=== PATIENT | female | born 1980 | race Caucasian/White ===

== ENCOUNTER 2016-09-24 19:35 | Emergency (ER) | payer MEDICAID, OTHER ==
[~2016-09-24] VITALS: Ht 157.5 cm; Wt 110.0 kg
[2016-09-24 19:37] VITALS: Ht 157.5 cm; Wt 110.0 kg
[2016-09-24 20:47] LABS: ADD SCAN DIFF NO
[2016-09-24 20:50] LABS: BASOPHILS % 0.5 % (0.0-2.0); EOSINOPHILS # 0.1 10^3/ul (0.0-0.5); EOSINOPHILS % 1.6 % (0.0-7.0); HEMATOCRIT 37.6 % (37.0-47.0); HEMOGLOBIN 11.6 g/dl (12.0-16.0); LYMPHOCYTES % 26.9 % (15.0-51.0); MEAN CORPUSCULAR HEMOGLOBIN 26.4 pg (29.0-33.0); MEAN CORPUSCULAR HGB CONC 30.9 g/dl (32.0-37.0); MEAN CORPUSCULAR VOLUME 85.6 fl (82.0-101.0); MEAN PLATELET VOLUME 10.6 fl (7.4-10.4); MONOCYTE # 0.6 10^3/ul (0.3-0.9); MONOCYTES % 7.5 % (0.0-11.0); NEUTROPHIL # 4.7 10^3/ul (1.6-7.5); NEUTROPHILS % 63.2 % (39.0-77.0); PLATELET COUNT 401 10^3/UL (140-415); RED BLOOD COUNT 4.39 10^6/ul (4.20-5.40); RED CELL DISTRIBUTION WIDTH 15.4 % (11.5-14.5); WHITE BLOOD COUNT 7.4 10^3/ul (4.8-10.8)
[2016-09-24 21:07] LABS: ALBUMIN 4.8 g/dl (3.3-4.9)
[2016-09-24 21:08] LABS: POTASSIUM 3.9 mmol/L (3.5-5.1)
[2016-09-24 21:10] LABS: ALBUMIN/GLOBULIN RATIO 1.65; BILIRUBIN,INDIRECT 0.2 mg/dl (0-1.1); BILIRUBIN,TOTAL 0.2 mg/dl (0.2-1.3); CREATININE 0.59 mg/dl (0.44-1.00); TOTAL PROTEIN 7.7 g/dl (6.1-8.1)
[2016-09-24 21:11] LABS: CALCIUM 9.2 mg/dl (8.4-10.2)
--- NOTE | 2016-09-24 21:11 | RADRPT ---
PROCEDURE: US Pelvis. CLINICAL INDICATION: Abdominal Pain TECHNIQUE: Multiple sonographic images of the pelvis were obtained utilizing a transabdominal and endovaginal technique. The images were reviewed on a PACS workstation. COMPARISON: None. FINDINGS: The uterus is visualized and measures 7.8 cm sagittal by 3.7 cm AP by 5.4 cm transverse on transabdo amanda imaging. There are small Nabothian cyst on the cervix. The endometrial echo complex is normal and measures 0.57 cm on endovaginal imaging. There is no evidence for free fluid. The right ovary is not visualized. The left ovary has a normal echotexture and measures 3 x 2.3 x 2.6 cm. No adnexal masses are noted. IMPRESSION: 1. There are small Nabothian cysts on the cervix. 2. Otherwise unremarkable pelvic sonogram. Physician Trisha Date Time Electronically viewed and signed by Physician Trisha on 09/24/2016 21:11 /
[2016-09-24 21:26] LABS: URINE BLOOD (Dip) POC 3+ (NEGATIVE)
[2016-09-24] MEDS ORDERED: IBUP-1542 PO (22:22)
[2016-09-24 22:29] VITALS: BP 149/76; PULSE 81; RESP 17; TEMP 98.7
--- NOTE | 2016-09-24 22:47 | ERD ---
ER Documentation Chief Complaint Date/Time DATE: 09/24/16 TIME: 22:39 Chief Complaint LLQ AP X 1 WEEK DENIES N/V/D HPI This is a 36-year-old female presenting to the emergency department complaining of heavy vaginal bleeding since August 11 for the past 2 months. Patient also complains of left-sided pelvic pain, rating it moderate in severity. Patient states that she went to see her primary care physician last week in regards to this and she was given medroxyprogesterone, she states that has not helped her. Patient states that she uses 8-10 tampons or pads per day. Patient denies any chest pain, shortness of breath, dizziness. She has not taken any medications for this. ROS All systems reviewed and are negative except as per history of present illness. Medications Home Meds Active Scripts Ibuprofen* (Ibuprofen*) 600 Mg Tablet, 600 MG PO Q6H Y for PAIN AND OR ELEVATED TEMP, #30 TAB Prov:CANDICE PUCKETT PA-C 09/24/16 Allergies Allergies: Coded Allergies: No Known Drug Allergy (Verified Allergy, Unknown, 09/24/16) PMhx/Soc History of Surgery: No (DENIES MEDICAL AND SURGICAL HX.) Anesthesia Reaction: No Hx Neurological Disorder: No Hx Respiratory Disorders: No Hx Cardiac Disorders: No Hx Psychiatric Problems: No Hx Miscellaneous Medical Probl: No Hx Alcohol Use: No Hx Substance Use: No Hx Tobacco Use: No Physical Exam Vitals Vital Signs Date Time Temp Pulse Resp B/P Pulse Ox O2 Delivery O2 Flow Rate FiO2 09/24/16 22:29 98.7 81 17 149/76 100 Room Air 09/24/16 19:37 98.3 101 18 151/78 98 Physical Exam General: well-developed/well-nourished, in no apparent distress, non-toxic appearing HENT: NC/AT, bilateral tympanic membrane is normal with good cone of light, nares patent, oropharynx clear without exudates Eyes: Conjunctiva normal, PERRLA, EOMI Neck: Supple, no lymphadenopathy Pulm: CTA bilaterally, no rales, rhonchi, or wheezing heard CV: Normal S1S2 GI: Soft, non-distended, normal bowel sounds, tender to palpation in pelvic region, negative rosvings, negative smalls's Back: No midline tenderness, no masses, No CVAT Ext: No clubbing, cyanosis, or edema Neuro: Alert and Orientated, gait normal Skin: Intact, normal turgor Psych: Normal mood and mentation Result Diagram: 09/24/16202909/24/162029 Results 24 hrs Laboratory Tests Test 09/24/16 20:30 09/24/16 21:29 White Blood Count 7.410^3/ul Red Blood Count 4.3910^6/ul Hemoglobin 11.6g/dl Hematocrit 37.6% Mean Corpuscular Volume 85.6fl Mean Corpuscular Hemoglobin 26.4pg Mean Corpuscular Hemoglobin Concent 30.9g/dl Red Cell Distribution Width 15.4% Platelet Count 54950^3/UL Mean Platelet Volume 10.6fl Neutrophils % 63.2% Lymphocytes % 26.9% Monocytes % 7.5% Eosinophils % 1.6% Basophils % 0.5% Nucleated Red Blood Cells % 0.0/100WBC Neutrophils # 4.710^3/ul Lymphocytes # 2.010^3/ul Monocytes # 0.610^3/ul Eosinophils # 0.110^3/ul Basophils # 0.010^3/ul Nucleated Red Blood Cells # 0.010^3/ul Sodium Level 143mmol/L Potassium Level 3.9mmol/L Chloride Level 110mmol/L Carbon Dioxide Level 27mmol/L Anion Gap 10 Blood Urea Nitrogen 12mg/dl Creatinine 0.59mg/dl Glucose Level 134mg/dl Calcium Level 9.2mg/dl Total Bilirubin 0.2mg/dl Direct Bilirubin 0.00mg/dl Indirect Bilirubin 0.2mg/dl Aspartate Amino Transf (AST/SGOT) 32IU/L Alanine Aminotransferase (ALT/SGPT) 37IU/L Alkaline Phosphatase 85IU/L Total Protein 7.7g/dl Albumin 4.8g/dl Globulin 2.90g/dl Albumin/Globulin Ratio 1.65 Lipase 108U/L Beta HCG, Quantitative < 2.4mIU/ml Bedside Urine pH (LAB) 6.0 Bedside Urine Protein (LAB) 2+ Bedside Urine Glucose (UA) Negative Bedside Urine Ketones (LAB) Trace Bedside Urine Blood 3+ Bedside Urine Nitrite (LAB) Negative Bedside Urine Leukocyte Esterase (L Negative Procedures/MDM This is a 36-year-old female presenting to the emergency department with heavy vaginal bleeding and pelvic pain for the past 2 months. There is no evidence of significant anemia through her blood work. No evidence of fibroids, ovarian torsion or ruptured ovarian cyst. Patient has already been seen by her [employer] last week and was given medroxyprogesterone in which she states it has not helped her. Patient is suitable and stable for discharge for home to follow-up with her physician again. Lab work was drawn. CBC did not show any evidence of leukocytosis or anemia. CMP did not show any evidence of renal, liver, or electrolyte abnormalities. Lipase was normal. UA did not show any evidence of urinary tract infection. Pelvic Ultrasound: 1. There are small Nabothian cysts on the cervix. 2. Otherwise unremarkable pelvic sonogram. I discussed diagnostic testing patient, discussed to follow-up with her [employer]. Patient is currently stable for discharge for home. She understands and agrees with plan Departure Diagnosis: Primary Impression: Vaginal bleeding Additional Impression: Pelvic pain Condition: Fair Patient Instructions: Dysmenorrhea, Pelvic Pain, Unknown Cause Referrals: palmer doctora Additional Instructions: Visite a palmer silvestre manning para un EXAMEN.Regrese a estas instalaciones si no se mejora blessing esperbamos o blessing le dijimos. [place] toda la medicina saba y blessing se le indic. Regrese a estas instalaciones si no se mejora blessing esperbamos o blessing le dijimos. CANDICE PUCKETT PA-C September 24, 2016 22:47
== END 2016-09-24 22:30 | disposition home or self-care (01) ==
LOC: FTE 19:35
DX: N93.9 Abnormal uterine and vaginal bleeding, unspecified (principal); R10.2 Pelvic and perineal pain
CPT/HCPCS: 76830; 76856; 80053; 81003; 83690; 84702; 85025; 86850; 86900; 86901; Z7502

== ENCOUNTER 2018-03-20 20:17 | Emergency (ER) | END 2018-03-20 21:39 | disposition home or self-care (01) ==

== ENCOUNTER 2018-12-10 23:44 | Emergency (ER) | payer MEDICAID ==
[~2018-12-10] VITALS: Ht 160 cm; Wt 124.2 kg
[~2018-12-10 23:44] MED LIST: ALBU8.5H8 INH; AMOX1TAB10 PO; GUAI120S25 PO; IBUP-1542 PO; PROM6.2515 PO; PSEU30TA38 PO
[2018-12-10 23:48] VITALS: BP 147/89; PULSE 89; RESP 22; Ht 160 cm; Wt 124.2 kg
--- NOTE | 2018-12-11 02:38 | ERD ---
ER Documentation Chief Complaint Chief Complaint C/O COUGH AND CHEST CONGESTION X1 WEEK, DIARRHEA 2 DAYS HPI Patient is 38-year-old female presenting to the ED for cough x1 week. Patient s tates the symptoms started gradually and have worsened since. She states the discomfort is an 8 out of 10. Patient is presenting with vitals within normal limits. Patient has not taken any medications for this. Patient denies any allergies to medications. Patient denies any recent sick contacts. Patient denies fever chills night sweats. Patient states that the phlegm is green with no presence of blood. Patient denies tobacco use. Patient states that she is not . Patient denies any past medical history and states she has not been sick like this in over a year. ROS All systems reviewed and are negative except as per history of present illness. Medications Home Meds Active Scripts Mmnurqoizzy-W-Itiwfxznuc Hb* (Guaifenesin* DM Syrup) 120 Ml Syrup, 10 ML PO Q4H PRN for COUGH for 7 Days, ML Prov:ELENA GRAHAM PA-C 12/11/18 Albuterol Sulfate* (Proair HFA*) 8.5 Gm Hfa.aer.ad, 2 PUFF INH Q4, #1 INHALER Prov:ELENA GRAHAM PA-C 12/11/18 Promethazine Hcl* (Promethazine Hcl* Syrup) 6.25 Mg/5 Ml Syrup, 6.25 MG PO Q6H PRN for COUGH, #100 ML Prov:SIN ARMANDO PA-C 03/20/18 Pseudoephedrine Hcl* (Pseudoephedrine Hcl*) 30 Mg Tablet, 30 MG PO Q6 PRN for CONGESTION, #30 TAB Prov:SIN ARMANDO PA-C 03/20/18 Amoxicillin/Potassium Clav (Amox-Clav 875-125 mg Tablet) 875-125 mg Tab, 1 TAB PO BID for 7 Days, #14 TAB Prov:SIN ARMANDO PA-C 03/20/18 Ibuprofen* (Ibuprofen*) 600 Mg Tablet, 600 MG PO Q6H PRN for PAIN AND OR ELEVATED TEMP, #30 TAB Prov:CANDICE PUCKETT PA-C 09/24/16 Allergies Allergies: Coded Allergies: No Known Drug Allergy (Verified Allergy, Unknown, 5/30/17) PMhx/Soc History of Surgery: Yes (appendectomy) Anesthesia Reaction: No Hx Neurological Disorder: No Hx Respiratory Disorders: No Hx Cardiac Disorders: No Hx Psychiatric Problems: No Hx Miscellaneous Medical Probl: No Hx Alcohol Use: No Hx Substance Use: No Hx Tobacco Use: No Smoking Status: Never smoker FmHx Family History: No diabetes, No coronary disease, No other Physical Exam Vitals Vital Signs Date Temp Pulse Resp B/P (MAP) Pulse Ox O2 O2 Flow FiO2 Time Delivery Rate 12/10/18 97.6 89 22 147/89 98 23:48 (108) Physical Exam GENERAL: Mild distress NECK: C-spine is soft and supple. There is no meningismus. There is no cerv ical lymphadenopathy. CHEST: Bilateral rhonchi HEART: Regular rate and rhythm. No murmurs, clicks, rubs or gallops. Results 24 hrs Laboratory Tests Test 12/11/18 00:11 POC Beta HCG, Qualitative NEGATIVE Procedures/MDM ED course: The patient was stable throughout the ED course. The patient and/or family info rmed of laboratory and diagnostic imaging results throughout the ED course. Diagnostic imaging: Read by radiologist Dr. Palomo PROCEDURE: XR Chest. CLINICAL INDICATION: Cough. TECHNIQUE: Two views. Frontal and lateral. COMPARISON: No prior study is available for comparison. FINDINGS: The lungs are clear. The heart size is normal. There is no pleural effusion. There is no pneumothorax. IMPRESSION: 1. Normal chest radiograph. Medical decision makin-year-old female presented to ED for a cough since Friday. Patient's physical exam was unremarkable except for bilateral rhonchi. The patient is af ebrile with O2 sats of 98%. The initial working diagnosis was acute bronchitis versus pneumonia. Patient's chest x-ray was unremarkable. Patient remained stable the entire visit in the ED. Patient will be discharged with a prescription for guaifenesin and Pro Air albuterol inhaler. Advised patient follow-up primary care provider in 1 to 2 days regarding this visit. At this ti me I have low suspicion for pneumonia, meningitis, sepsis. I advised the patient if the symptoms worsen return to ER immediately. Patient is in agreement treatment plan all questions were answered upon discharge Prescription for home: Guaifenesin Pro Air I have discussed with the patient proper use and common side effects to expert with the medication . I advised the patient/family to speak with the pharmacist dispensing the medication to be advised of any potential drug interactions with other medication or supplements they may be taking. Discharge: At this time, patient is stable for discharge and outpatient management. I have instructed the patient to follow-up with his\her primary care physician in 1 to 2 days. I have discussed with the patient the possibility of needing to see a specialist for further work-up and imaging studies if symptoms persist. I have instructed the patient to promptly return to the ER for any new or worsening symptoms including increased pain, fever, nausea, vomiting, weakness or LOC. The patient and\or family expressed understanding of and agreement with this plan. All questions were answered. Home care instructions were provided. Disclaimer: Inadvertent spelling and grammatical errors are likely due to EHR\dictation software use and do not reflect on the overall quality of patient care. Also, please note that the electronic time recorded on the note does not necessarily reflect the actual time of the patient encounter. Departure Diagnosis: Primary Impression: Acute bronchitis Bronchitis organism: unspecified organism Qualified Codes: J20.9 - Acute bronchitis, unspecified Additional Impression: Cough Condition: Stable Patient Instructions: Acute Bronchitis Referrals: [facility] YOU HAVE RECEIVED A MEDICAL SCREENING EXAM AND THE RESULTS INDICATE THAT YOU DO NOT HAVE A CONDITION THAT REQUIRES URGENT TREATMENT IN THE EMERGENCY DEPARTMENT. FURTHER EVALUATION AND TREATMENT OF YOUR CONDITION CAN WAIT UNTIL YOU ARE SEEN IN YOUR DOCTORS OFFICE WITHIN THE NEXT 1-2 DAYS. IT IS YOUR RESPONSIBILITY TO MAKE AN APPOINTMENT FOR FOLOW-UP CARE. IF YOU HAVE A PRIMARY DOCTOR --you should call your primary doctor and schedule an appointment IF YOU DO NOT HAVE A PRIMARY DOCTOR YOU CAN CALL OUR PHYSICIAN REFERRAL HOTLINE AT IF YOU CAN NOT AFFORD TO SEE A PHYSICIAN YOU CAN CHOSE FROM THE FOLLOWING [facility] [address] [facility] [address] [facility] [address] [facility] [address] [facility] [address] [facility]. [address] [facility] [place]. [facility] YOU HAVE RECEIVED A MEDICAL SCREENING EXAM AND THE RESULTS INDICATE THAT YOU DO NOT HAVE A CONDITION THAT REQUIRES URGENT TREATMENT IN THE EMERGENCY DEPARTMENT. FURTHER EVALUATION AND TREATMENT OF YOUR CONDITION CAN WAIT UNTIL YOU ARE SEEN IN YOUR DOCTORS OFFICE WITHIN THE NEXT 1-2 DAYS. IT IS YOUR RESPONSIBILITY TO MAKE AN APPOINTMENT FOR FOLOW-UP CARE. IF YOU HAVE A PRIMARY DOCTOR --you should call your primary doctor and schedule and appointment IF YOU DO NOT HAVE A PRIMARY DOCTOR YOU CAN CALL OUR PHYSICIAN REFERRAL HOTLINE AT . IF YOU CAN NOT AFFORD TO SEE A PHYSICIAN YOU CAN CHOSE FROM THE FOLLOWING [facility] INSTITUTIONS: [facility] [address] [place] [address] [facility] [address] [place] [address] [facility] [address] [place] [address] Additional Instructions: Llame al doctor MAANA y shabbir jonah DAWNA PARA DENTRO DE 1-2 FERMIN.Dgale a la secretaria que nosotros le instruimos hacer esta dawna.Avise o llame si palmer condicin se empeora antes de la dawna. Regresa aqui si peor o no mejor. ELENA GRAHAM PA-C Dec 11, 2018 02:38
== END 2018-12-11 01:52 | disposition home or self-care (01) ==
LOC: FTE 23:44
DX: J20.9 Acute bronchitis, unspecified (principal)
CPT/HCPCS: 71046; 81025